=== PATIENT | female | born 1940 | race Caucasian/White ===

== ENCOUNTER 2017-01-08 13:07 | Emergency (ER) | payer MEDICARE, OTHER ==
[~2017-01-08] VITALS: Ht 157.5 cm; Wt 59.1 kg
[2017-01-08 13:17] VITALS: BP 144/81; PULSE 106; RESP 17; O2SAT 100
--- NOTE | 2017-01-08 14:24 | ED.REPORT ---
HPI-Psychiatric Illness Date of Service Jan 08, 2017 ED Provider: Endy Escobedo PA-C Mary is a 76-year-old female presenting with a chief complaint of depression. Patient reports a long history of taking propoxyphene, which she no longer finds helpful. While she denies suicidal ideation she reports "crying all the time." She admits to loneliness, but states she has been quite proactive about attempting to form new relationships. She is engaged with a therapist, but reports she often misses appointments due to scheduling confusion on the therapists part. Patient reports her primary care provider has been resistant to increasing her paroxetine. Has attempted treatment with a sun lamp, which has not been helpful. States she is leaving town next week for a family reunion and is hoping to improve her condition before that. Nursing Notes Stated Complaint: DEPRESSION Chief Complaint: Psychiatric Complaint Nursing Notes Reviewed: Yes Allergies: Coded Allergies: No Known Allergies (Verified Allergy, Mild, 09/09/04) Scheduled Paroxetine (Paroxetine) 40 Mg Tablet 40 MG PO HS General Time Seen by MD: 13:58 Chief Complaint Depressed Risk-Psychiatric Illness Suicide Risk Stratification RF Statements: Risk factors reviewed Past Medical History Past Medical History Depression, Osteoporosis, hepatitis C, treated Review of Systems Review of Systems Note: Denies suicidal ideation, homicidal action, hallucination Otherwise as stated in history of present illness Physical Exam General: Well appearing, well developed, well nourished, mild distress. Tearful. Head: Atraumatic, normocephalic. Eyes: No scleral icterus or injection. No discharge. Vision grossly intact. ENT: Voice clear, hearing grossly intact. Respiratory: No respiratory distress, no increased work of breathing. Speaks in complete sentences. Skin: Warm and dry. Neurological: Grossly nonfocal. Psychological: alert and oriented. Speech appropriate, linear and logical. Behavior appropriate. Initial Vital Signs Vital Signs (First) Date Time Temp Pulse Resp B/P Pulse Ox O2 Delivery O2 Flow Rate FiO2 01/08/17 13:17 36.8 106 17 144/81 100 Room Air Mild tachycardia Re-Eval/Medical Decision Med Decision/Clinical Course Generally healthy 76-year-old female patient with a chief complaint of depression. Patient complained of ongoing depression for many years, worsening recently. Convincingly denies suicidality, thoughts of harming others or hallucinations. Admits to loneliness. Patient reports that her primary care provider has been resistant to increasing her dose of paroxetine, which she feels is no longer enough. Physical examination is benign. I discussed the case with the patient's primary care provider who reports that she believes her symptoms are largely caused by reported loneliness and suspects a seasonal element. Earlier this year he recommended treatment with a UV light, follow up after that. He reports the patient did not present for follow-up. He feels that increasing piroxicam to 40 mg is an appropriate course of treatment. Request follow-up in 1 month. Patient was quite pleased to hear this. Provided prescription for piroxicam and 40 mg at bedtime 30 days. Advised follow-up in one month with primary care. Provided emergency return precautions. Patient verbalizes understanding of and consent to the plan. Mild tachycardia is noted, but had little concern for sepsis, substance abuse, hypovolemia or not thought to be clinically relevant. Consultation : Referral / Consult Name: David Quintero MD Consulted With: Primary care physician Call Returned at: 14:24 Note: Dr. Quintero recommends raising her dose of paroxetine to 40 mg and following up in office in one month. Discharge & Departure Impression: Primary Impression: Depression Depression Type: unspecified Qualified Code: F32.9 - Major depressive disorder, single episode, unspecified )( Condition at Discharge: No danger to self, No danger to others Discharge Condition All VS Reviewed: Yes Condition: Stable Patient Instructions: Depression (ED) Additional Instructions: Evaluation for depression in the emergency department include interview and physical examination. After our conversation I called your primary care provider, Dr. Des Quintero. He agrees that it is reasonable to increase her dose of paroxetine to 40 mg per day. It is very important to follow-up with Dr. Quintero in one month to assess your progress. Return to the emergency department for any new or worsening symptoms including thoughts of harming yourself or other people. Referrals: David Quintero MD EDSupervising Provider for [facility]: Noman Fischer DO copies to: David Quintero MD, Seth PA-C Jan 08, 2017 14:24
[2017-01-08] MEDS ORDERED: PARO40TA3 PO (14:33)
== END 2017-01-08 14:50 | disposition home or self-care (01) ==
LOC: SED 13:07
DX: F32.9 Major depressive disorder, single episode, unspecified (principal); Z86.19 Personal history of other infectious and parasitic diseases